=== PATIENT | male | born 1950 | race Two or more races ===

== ENCOUNTER 2019-06-20 13:25 | Inpatient (IN) | payer OTHER ==
[~2019-06-20] VITALS: Ht 162.6 cm; Wt 78.0 kg
[2019-06-20] MEDS ORDERED: INDERAL XL80 MG PO (13:50)
[2019-06-20] MEDS ORDERED: LASIX20 MG PO (13:50)
[2019-06-20] MEDS ORDERED: COZAAR25 MG PO (13:51)
[2019-06-20] MEDS ORDERED: CARDURA XL8 MG PO (13:51)
[2019-06-20] MEDS ORDERED: INTEGRA PLUS C1 EACH PO (13:54)
[2019-06-20] MEDS ORDERED: DEXILANT60 MG PO (13:54)
--- NOTE | 2019-06-20 13:54 | NUR ---
PACIENTE ALERTA Y ORIENTADO. REFERIDO POR DR. AVANI BURNS POR SALAS SHARMA. NOTIFICADO AL COURT [place].
[2019-06-20] MEDS ORDERED: ZYLOPRIM100 M1 PO (14:03)
[2019-06-20] MEDS ORDERED: COZAAR50 MG PO (14:04)
--- NOTE | 2019-06-20 15:30 | NUR ---
TX. OFRECIDO POR MIS MILIAN QUIEN ORIENTA AL PACIENTE SOBRE EL [place]. EXTRAE MUESTRAS DE GOYO BAJO MEDIDAS ASEPTICAS ROTULA Y ENVIA AL LABORATORIO. CANALIZA Y ADMINISTRA MEDICAMENTOS LUPE ORDEN MEDICA.
[2019-06-23] MEDS ORDERED: CORGARD20 M1 PO (12:54)
[2019-06-23] MEDS ORDERED: VITAMIN B-1100 MG PO (12:56)
[2019-06-23] MEDS ORDERED: VITAMIN B125000 MCG PO (12:57)
[2019-06-23] MEDS ORDERED: FOLIC ACID1 MG PO (12:57)
[2019-06-23] MEDS ORDERED: CHLORDIAZEPOXID25 MG PO (12:58)
== END 2019-06-23 13:25 | disposition home or self-care (01) | DRG 432 ==
LOC: ER 13:25 → SURG 20:51 → SURH 20:51 → SURG 22:05
PROVIDERS: ADMIT Internal Medicine
PROC: 30233N1 Transfusion of Nonautologous Red Blood Cells into Peripheral Vein, Percutaneous Approach (ICD-10-PCS; principal; 2019-06-21)
PROC: CD171ZZ Planar Nuclear Medicine Imaging of Gastrointestinal Tract using Technetium 99m (Tc-99m) (ICD-10-PCS; 2019-06-21)
PROC: BW21Y0Z Computerized Tomography (CT Scan) of Abdomen and Pelvis using Other Contrast, Unenhanced and Enhanced (ICD-10-PCS; 2019-06-22)
DX: K70.31 Alcoholic cirrhosis of liver with ascites (principal); I85.11 Secondary esophageal varices with bleeding; K92.1 Melena; D62 Acute posthemorrhagic anemia; N17.8 Other acute kidney failure; D68.4 Acquired coagulation factor deficiency; N41.0 Acute prostatitis; K80.80 Other cholelithiasis without obstruction; I12.9 Hypertensive chronic kidney disease with stage 1 through stage 4 chronic kidney disease, or unspecified chronic kidney disease; N18.3 Chronic kidney disease, stage 3 (moderate)